=== PATIENT | female | born 1955 | race Caucasian/White ===

== ENCOUNTER 2018-03-14 06:31 | Day surgery (SDC) | payer MEDICARE, OTHER ==
[2018-03-14] MEDS ORDERED: Lidocaine 1% with EPINEPHrine 1:100,000 50 ML MDV ONE (06:45)
[2018-03-14] MEDS ORDERED: Sodium Chloride 0.9% 10 ML ONE (06:45)
[2018-03-14] MEDS ORDERED: Sodium Tetradecyl Sulfate 1% 20 MG/2 ML SDV ONE (06:45)
[2018-03-14] MEDS ORDERED: Propofol 200 MG/20 ML SDV ONE ×2 (06:56→08:25)
[2018-03-14] MEDS ORDERED: Midazolam 1 MG/ML 2 ML SDV ONE (06:56)
[2018-03-14] MEDS ORDERED: fentaNYL 100 MCG/2 ML SDV ONE (06:56)
[2018-03-14] MEDS ORDERED: Sodium Chloride 0.9% 1,000 ML IV SCH (07:00)
[2018-03-14 10:27] VITALS: BP 129/78
[2018-03-14] MEDS: Lidocaine 1% w/EPINEPHrine 50 ML, Sodium Bicarbonate 5 MEQ in Sodium Chloride 0.9% 950 ML INJECT SCH ×2 (10:33→10:34)
--- NOTE | 2018-03-14 11:40 | OR ---
DATE OF PROCEDURE: 03/14/2018 PROCEDURES: 1. Radiofrequency ablation of right greater saphenous vein. 2. Sclerotherapy right leg, multiple. 3. Compression wraps, right leg ([id number]). COMPLICATION: None. COMPUTER NETWORK SPECIALIST: None. ANESTHESIA: MAC/local. PREOPERATIVE DIAGNOSES: Venous insufficiency. POSTOPERATIVE DIAGNOSES: Venous insufficiency. INDICATIONS: Risks, benefits, alternatives, limitations including, but not limited to infection, bleeding, and DVT formation were explained to the patient and wished to proceed. PROCEDURE IN DETAIL: The patient was placed in supine position. The left leg was investigated first. This had thrombosed/occluded/non refluxing GSV. Therefore, attention was turned to the right leg. The patient had refluxing greater saphenous vein. However, there was a tortuosity around the area of the knee, which was not amenable to passage. This was noted during access at the level of the ankle. A 21-gauge needle then exchanged for a 35,000th wire, then exchanged for a 7-B[place] sheath. The probe was advanced and was unable to be advanced past this spot. Therefore, the patient will undergo a second access point directly above the knee to compensate for this. Tumescent fluid was injected 1 cm jacket around this. Direct even pressure was held. The sheath and device were then removed. This technique including verification of the tumescent fluid was performed on the superior aspect, same manner, same fashion, same technique in the same sequence using the same equipment. Sclerotherapy was then performed on the right leg using 0.33% sodium tetradecyl. This was drawn back to ensure intravascular injection only. No more than 2 mL was injected in one location. Direct pressure was held on both wounds for 10 minutes, Dermabond applied. CoFlex two-stage compression wrapping in fiemhi-kh-yrlar [id number] gradient was then performed on the right leg. The patient tolerated the procedure well. Milton Elizabeth MD /[id number]
== END 2018-03-14 10:05 | disposition home or self-care (01) ==
LOC: JP.SDS 06:31
PROVIDERS: ATTEND Surgery
DX: I87.2 Venous insufficiency (chronic) (peripheral) (principal); E03.9 Hypothyroidism, unspecified; E78.5 Hyperlipidemia, unspecified; F32.9 Major depressive disorder, single episode, unspecified; F17.200 Nicotine dependence, unspecified, uncomplicated; Z88.0 Allergy status to penicillin; Z88.1 Allergy status to other antibiotic agents; Z88.2 Allergy status to sulfonamides; Z88.5 Allergy status to narcotic agent; Z88.8 Allergy status to other drugs, medicaments and biological substances
CPT/HCPCS: 36470; 36475; J1642; J2250; J2704; J3010; J7030; J7050; J3490

== ENCOUNTER 2018-12-29 08:26 | Emergency (ER) | payer MEDICARE, OTHER ==
--- NOTE | 2018-12-29 09:49 | EDM.PDOC ---
ED HPI GENERAL MEDICAL PROBLEM - General Chief Complaint: Genitourinary Problem Stated Complaint: PAIN IN SHOULDERS DOWN ARMS,DIZZY,WEAK Time Seen by Provider: 12/29/18 09:46 Source of Information: Reports: Patient History Limitations: Reports: No Limitations - History of Present Illness INITIAL COMMENTS - FREE TEXT/NARRATIVE: pt arrived with total body aches. She was found to have a UTI and is on macrodid. She has not spiked a high temp. She is feeling extremely weak. Onset: Gradual, Other (pt has not felt well for 2-3 days. ) Duration: Day(s): Location: Reports: Generalized Associated Symptoms: Reports: Fever/Chills, Loss of Appetite, Weakness general Pain Score (Numeric/FACES): 3 - Related Data Allergies Allergy/AdvReac Type Severity Reaction Status Date / Time cefaclor [From Ceclor] Allergy Swelling Verified 12/29/18 09:10 diazepam [From Valium] Allergy Chills Verified 12/29/18 09:10 morphine Allergy Other Verified 12/29/18 09:10 Penicillins Allergy Rash Verified 12/29/18 09:10 Ktllbuz-Fix-Nno Reductase Allergy Other Verified 12/29/18 09:10 Inhibitor Sulfa (Sulfonamide Allergy Rash Verified 12/29/18 09:10 Antibiotics) tetracycline [Tetracycline] Allergy Rash Verified 12/29/18 09:10 niacin AdvReac Liver Verified 12/29/18 09:10 Problems rosuvastatin calcium AdvReac Muscle Verified 12/29/18 09:10 [From Crestor] Aches simvastatin AdvReac Muscle Verified 12/29/18 09:10 Aches Home Meds: Home Meds Aspirin [Children's Aspirin] 81 mg PO DAILY 08/20/13 [History] FLUoxetine HCl [Fluoxetine HCl] 20 mg PO DAILY 08/20/13 [History] Levothyroxine 50 mcg PO DAILY 08/20/13 [History] Ascorbate Calcium [Vitamin C] 500 mg PO DAILY 03/13/18 [History] Biotin 10,000 mcg PO DAILY 03/13/18 [History] Ergocalciferol (Vitamin D2) [Vitamin D2] 2,000 unit PO DAILY 03/13/18 [History] Letrozole [Femara] 2.5 mg PO DAILY 03/13/18 [History] hydroCHLOROthiazide [Hydrochlorothiazide] 25 mg PO DAILY 03/13/18 [History] Ascorbate Calcium [Vitamin C] 500 mg PO DAILY 12/29/18 [History] Past Medical History HEENT History: Reports: Hard of Hearing Cardiovascular History: Reports: High Cholesterol, Hypertension [employer]IZ[employer]ELOPMENT History: Reports: Musculoskeletal History: Reports: Arthritis Endocrine/Metabolic History: Reports: Hypoparathyroidism Oncologic (Cancer) History: Reports: Breast - Infectious Disease History Infectious Disease History: Reports: Chicken Pox - Past Surgical History Female Surgical History: Reports: Hysterectomy, Tubal Ligation, Other (See Below) Other Female Surgeries/Procedures: Lumpectomy Musculoskeletal Surgical History: Reports: Other (See Below) Other Musculoskeletal Surgeries/Procedures:: neck surgery. Spacer between C5 and C6 Social & Family History - Tobacco Use Smoking Status *Q: Current Some Day Smoker Years of Tobacco use: 40 Packs/Tins Daily: 0.5 Used Tobacco, but Quit: No Second Hand Smoke Exposure: Yes - Caffeine Use Caffeine Use: Reports: Coffee - Alcohol Use Days Per Week of Alcohol Use: 0 - Recreational Drug Use Recreational Drug Use: No ED ROS GENERAL - Review of Systems Review Of Systems: See Below Constitutional: Reports: Fever, Chills, Malaise HEENT: Reports: No Symptoms Respiratory: Reports: No Symptoms Cardiovascular: Reports: No Symptoms Endocrine: Reports: No Symptoms GI/Abdominal: Reports: Abdominal Pain : Reports: Frequency Musculoskeletal: Reports: Other ( generalized musclepain. ) ED EXAM, GI/ABD - Physical Exam Exam: See Below Text/Narrative:: pt is very weak appearing. She was told she had a UTI and she has been on Macrobid and is not improving. She is having episodes where she feels like her legs are getting so weak that she can,t stand on them. She feels like she is dehydrated. Her urine has been very dark. Exam Limited By: No Limitations General Appearance: Alert, Anxious, Moderate Distress, Other (pupils ) Ears: Normal TMs Nose: Normal Inspection Throat/Mouth: Normal Inspection Head: Atraumatic Neck: Normal Inspection Respiratory/Chest: No Respiratory Distress Cardiovascular: Regular Rate, Rhythm GI/Abdominal Exam: Tender, Other (pt has tenderness in the rt lower abdoman. ) (Female) Exam: Deferred Rectal (Female) Exam: Deferred Back Exam: Normal Inspection Extremities: Normal Inspection Neurological: Alert, Oriented, Normal Cognition Psychiatric: Anxious Course - Vital Signs Last Recorded V/S: Last Vital Signs Temp 35.3 C 12/29/18 09:29 Pulse 69 12/29/18 14:31 Resp 16 12/29/18 14:31 BP 132/78 12/29/18 14:31 Pulse Ox 97 12/29/18 14:31 - Orders/Labs/Meds Labs: Laboratory Tests 12/29/18 12/29/18 12/29/18 Range/Units 09:59 09:59 09:59 WBC 12.7 H (4.5-11.0) K/uL RBC 4.72 (3.30-5.50) M/uL Hgb 14.5 (12.0-15.0) g/dL Hct 42.2 (36.0-48.0) % MCV 89 (80-98) fL MCH 31 (27-31) pg MCHC 34 (32-36) % Plt Count 334 (150-400) K/uL Neut % (Auto) 81 H (36-66) % Lymph % (Auto) 5 L (24-44) % [place] % (Auto) 7 H (2-6) % Eos % (Auto) 7 H (2-4) % Baso % (Auto) 0 (0-1) % Sodium 134 L (140-148) mmol/L Potassium 3.4 L (3.6-5.2) mmol/L Chloride 95 L (100-108) mmol/L Carbon Dioxide 28 (21-32) mmol/L Anion Gap 14.4 H (5.0-14.0) mmol/L BUN 12 (7-18) mg/dL Creatinine 1.2 H (0.6-1.0) mg/dL Est Cr Clr Drug Dosing 43.75 mL/min Estimated GFR (MDRD) 45 L (>60) Glucose 131 H (74-106) mg/dL Calcium 9.3 (8.5-10.1) mg/dL Total Bilirubin 0.4 (0.2-1.0) mg/dL AST 15 (15-37) U/L ALT 27 (12-78) U/L Alkaline Phosphatase 69 (46-116) U/L C-Reactive Protein 8.33 H (0.0-0.3) mg/dL Total Protein 7.2 (6.4-8.2) g/dL Albumin 3.0 L (3.4-5.0) g/dL Globulin 4.2 H (2.3-3.5) g/dL Albumin/Globulin Ratio 0.7 L (1.2-2.2) Urine Color Urine Appearance Urine pH (4.5-8.0) Ur Specific [place] (1.008-1.030) Urine Protein (NEGATIVE) mg/dL Urine Glucose (UA) (NEGATIVE) mg/dL Urine Ketones (NEGATIVE) mg/dL Urine Occult Blood (NEGATIVE) Urine Nitrite (NEGATIVE) Urine Bilirubin (NEGATIVE) Urine Urobilinogen (NORMAL) mg/dL Ur Leukocyte Esterase (NEGATIVE) Urine RBC (0-5) Urine WBC (0-5) Ur Epithelial Cells Amorphous Sediment Urine Bacteria Urine Mucus 12/29/18 Range/Units 11:11 WBC (4.5-11.0) K/uL RBC (3.30-5.50) M/uL Hgb (12.0-15.0) g/dL Hct (36.0-48.0) % MCV (80-98) fL MCH (27-31) pg MCHC (32-36) % Plt Count (150-400) K/uL Neut % (Auto) (36-66) % Lymph % (Auto) (24-44) % [place] % (Auto) (2-6) % Eos % (Auto) (2-4) % Baso % (Auto) (0-1) % Sodium (140-148) mmol/L Potassium (3.6-5.2) mmol/L Chloride (100-108) mmol/L Carbon Dioxide (21-32) mmol/L Anion Gap (5.0-14.0) mmol/L BUN (7-18) mg/dL Creatinine (0.6-1.0) mg/dL Est Cr Clr Drug Dosing mL/min Estimated GFR (MDRD) (>60) Glucose (74-106) mg/dL Calcium (8.5-10.1) mg/dL Total Bilirubin (0.2-1.0) mg/dL AST (15-37) U/L ALT (12-78) U/L Alkaline Phosphatase (46-116) U/L C-Reactive Protein (0.0-0.3) mg/dL Total Protein (6.4-8.2) g/dL Albumin (3.4-5.0) g/dL Globulin (2.3-3.5) g/dL Albumin/Globulin Ratio (1.2-2.2) Urine Color Yellow Urine Appearance Cloudy Urine pH 5.0 (4.5-8.0) Ur Specific [place] 1.015 (1.008-1.030) Urine Protein Trace (NEGATIVE) mg/dL Urine Glucose (UA) Normal (NEGATIVE) mg/dL Urine Ketones Negative (NEGATIVE) mg/dL Urine Occult Blood Trace (NEGATIVE) Urine Nitrite Negative (NEGATIVE) Urine Bilirubin Negative (NEGATIVE) Urine Urobilinogen Normal (NORMAL) mg/dL Ur Leukocyte Esterase Small (NEGATIVE) Urine RBC 0-5 (0-5) Urine WBC 5-10 H (0-5) Ur Epithelial Cells Few Amorphous Sediment Not seen Urine Bacteria Moderate Urine Mucus Moderate Meds: Medications Discontinued Medications Generic Name Dose Route Start Last Admin Trade Name Freq PRN Reason Stop Dose Admin Sodium Chloride 1,000 mls @ 999 mls/hr 12/29/18 10:00 12/29/18 10:08 Normal Saline IV 999 mls/hr ASDIRECTED DANNY Administration Sodium Chloride 1,000 mls @ 999 mls/hr 12/29/18 10:30 12/29/18 11:20 Normal Saline IV 999 mls/hr ASDIRECTED [facility] Administration - Re-Assessments/Exams Free Text/Narrative Re-Assessment/Exam: 12/29/18 14:06 pt has a concentrated urin but it appears to be improving. She has had abdomanal pain on and off. She has a creatnine which is higher at 1.2. She has evidence of sig dehydration. She is having episodes where her legs feel very weak and she is not able to continue to stand up. She has a mild elevation in her creatnine. A cat scan of the abdoman was obtained which showed a abdomanal aneuyism at 6.4. There does not appear to be leaking. She does have a very high crp. 01/01/19 18:55 Departure - Departure Time of Disposition: 14:21 Disposition: DC/Tfer to [facility] 02 Condition: Fair Clinical Impression: Abdominal aneurysm, Dehydration, UTI (urinary tract infection) - Discharge Information Referrals: Jennifer Ospina PA [Primary Care Provider] - Forms: ED Department Discharge Care Plan Goals: Transfer to
[2018-12-29] MEDS ORDERED: Sodium Chloride 0.9% 1,000 ML IV SCH ×2 (10:00→10:30)
--- NOTE | 2018-12-29 13:30 | CRLCT ---
INDICATION: Lower abdominal pain. Urinary tract infection. TECHNIQUE: Volumetric helical scanning of the abdomen and pelvis was performed without contrast material. Coronal and sagittal reconstructions were obtained. COMPARISON: None. FINDINGS: No urinary tract stone or obstruction is evident. The kidneys are unremarkable except for an apparent 3 cm left renal parapelvic cyst and a 1 cm parenchymal cyst. The bladder is grossly negative. A supracervical hysterectomy appears to have been performed. The ovaries are not visualized and may have been removed as well. A fusiform, infrarenal abdominal aortic aneurysm measuring up to 6.4 cm in maximum diameter is noted. No leak is evident. No free fluid is noted. The liver is normal in size, shape and attenuation. No bile duct dilation is evident. The spleen is within normal limits. The adrenal glands are unremarkable. The pancreas is within normal limits. No lymphadenopathy is evident. The bowel is unremarkable. The lung bases are clear. The heart is normal in size. IMPRESSION: 1. Fusiform, infrarenal abdominal aortic aneurysm measuring up to 6.4 cm in maximum diameter. 2. 3 cm left renal parapelvic cyst and a 1 cm left renal parenchymal cyst. 3. Post hysterectomy. Please note that all CT scans at this facility use dose modulation, iterative reconstruction, and/or weight-based dosing when appropriate to reduce radiation dose to as low as reasonably achievable. Dictated by Domenic Lambert MD @ Dec 29 2018 1:20PM Signed by Dr. Domenic Lambert @ Dec 29 2018 1:28PM
[2018-12-29 16:46] VITALS: BP 132/78
== END 2018-12-29 15:00 ==
LOC: JP.ED 08:26
DX: I71.4 Abdominal aortic aneurysm, without rupture (principal); E86.0 Dehydration; N39.0 Urinary tract infection, site not specified; E78.00 Pure hypercholesterolemia, unspecified; I10 Essential (primary) hypertension; F17.210 Nicotine dependence, cigarettes, uncomplicated; Z88.8 Allergy status to other drugs, medicaments and biological substances; Z88.2 Allergy status to sulfonamides; Z88.1 Allergy status to other antibiotic agents; Z79.899 Other long term (current) drug therapy; Z79.82 Long term (current) use of aspirin
CPT/HCPCS: 36415; 74176; 80053; 81001; 85025; 86140; 96360; 96361; 99284; J7030

== ENCOUNTER 2020-03-26 06:46 | Day surgery (SDC) | payer MEDICARE, OTHER ==
[2020-03-26] MEDS ORDERED: Sodium Chloride 0.9% 1,000 ML IV SCH (07:15)
[2020-03-26] MEDS ORDERED: Midazolam 1 MG/ML 2 ML SDV ONE (07:28)
[2020-03-26] MEDS ORDERED: fentaNYL 100 MCG/2 ML SDV ONE (07:28)
[2020-03-26] MEDS ORDERED: Propofol 200 MG/20 ML SDV ONE (07:28)
[2020-03-26 09:16] VITALS: BP 140/81; PULSE 68
--- NOTE | 2020-03-26 14:33 | OR ---
DATE OF PROCEDURE: 03/26/2020 SURGEON: Milton Elizabeth MD PROCEDURE: Colonoscopy. FINDINGS: 1. Descending colon polyp, approximately 5 mm, completely removed using hot snare wire device. 2. Diverticulosis, mild. COMPLICATIONS: None. ROD PILER: None. ANESTHESIA: MAC. PREOPERATIVE DIAGNOSIS: Screening colonoscopy. POSTOPERATIVE DIAGNOSIS: Screening colonoscopy. RISKS: Risks, benefits, alternatives, and limitations including, but not limited to infection, bleeding, and perforation were explained to the patient, who wished to proceed. PROCEDURE IN DETAIL: The patient was placed in left lateral decubitus position. Digital rectal exam was performed without abnormality. Scope was introduced and advanced atraumatically to the ileocecal valve. A photo was taken of this. Scope was brought back through the ascending, transverse, descending colon, and retroflexed. The aforementioned polyp was identified and completely removed. No abnormalities on retroflexion. The patient tolerated the procedure well. Milton Elizabeth MD /[id number]
== END 2020-03-26 09:40 | disposition home or self-care (01) ==
LOC: JP.SDS 06:46
PROVIDERS: ATTEND Surgery
DX: Z12.11 Encounter for screening for malignant neoplasm of colon (principal); K63.5 Polyp of colon; K57.30 Diverticulosis of large intestine without perforation or abscess without bleeding; E78.5 Hyperlipidemia, unspecified
CPT/HCPCS: 45385; 88305; J2250; J2704; J3010; J7030